=== PATIENT | male | born 1970 | race Caucasian/White ===

== ENCOUNTER 2017-11-15 19:28 | Emergency (ER) | payer MEDICAID ==
[~2017-11-15] VITALS: Ht 175.3 cm; Wt 110.7 kg
[2017-11-15 19:50] VITALS: BP_SYST 143
[2017-11-15 21:28] VITALS: BP_SYST 139
== END 2017-11-15 21:28 | disposition home or self-care (01) ==
LOC: SED 19:28
DX: K59.00 Constipation, unspecified (principal); I10 Essential (primary) hypertension; E11.9 Type 2 diabetes mellitus without complications
CPT/HCPCS: 74021; 99284

== ENCOUNTER 2019-04-10 11:56 | Emergency (ER) | payer BC, MEDICAID ==
[~2019-04-10] VITALS: Ht 177.8 cm; Wt 108.9 kg
[2019-04-10 12:05] VITALS: BP_SYST 188
[2019-04-10 12:30] LABS: BASOPHILS % (AUTO) 0.2 % (0.0-2.0); EOSINOPHILS % (AUTO) 0.5 % (0.0-4.0); HEMATOCRIT 49.2 % (36-54); HEMOGLOBIN 16.8 g/dL (14.0-18.0); LYMPHOCYTES # (AUTO) 0.7 K/uL (1.0-5.5); LYMPHOCYTES % (AUTO) 8.6 % (20.5-51.5); MEAN CORPUSCULAR HEMOGLOBIN 29 pg (27-31); MEAN CORPUSCULAR HGB CONC 34 % (32-36); MEAN CORPUSCULAR VOLUME 86 fL (79.0-98.0); MONOCYTES # (AUTO) 0.5 K/uL (0.0-1.0); NEUTROPHILS % (AUTO) 84.7 % (40.0-70.0); PLATELET COUNT (AUTO) 230 K/uL (130-430); RED BLOOD CELL COUNT(AUTO) 5.73 MIL/uL (4.2-6.2); RED CELL DISTRIBUTION WIDTH 13.3 % (9.0-15.0); WHITE BLOOD COUNT (AUTO) 8.2 K/uL (4.8-10.8)
[2019-04-10 12:42] LABS: CALCIUM 9.3 mg/dL (8.4-11.0); CREATININE 0.9 mg/dL (0.55-1.30); POTASSIUM 4.2 mmol/L (3.5-5.1)
[2019-04-10 12:46] LABS: INR 0.9 (0.80-1.20); PROTHROMBIN TIME 9.5 SECS (9.5-12.5)
[2019-04-10 12:47] LABS: ALBUMIN 3.4 g/dL (3.4-4.8); C-REACTIVE PROTEIN QUANT 7.4 mg/dL (0-0.5); TOTAL BILIRUBIN 0.9 mg/dL (0.0-1.0)
[2019-04-10] MEDS ORDERED: IBUPROFEN 800 MG TABLET PO ONE (13:30)
[2019-04-10] MEDS ORDERED: HYDROcodone/ACETAMIN 10-325 MG TAB PO ONE (13:30)
[2019-04-10 13:56] VITALS: BP_SYST 162
== END 2019-04-10 13:58 | disposition home or self-care (01) ==
LOC: SED 11:56
DX: L03.211 Cellulitis of face (principal)
CPT/HCPCS: 36415; 80053; 82962; 83605; 85025; 85610-TC; 85730-TC; 86140; 99283